=== PATIENT | male | born 1995 ===

== ENCOUNTER 2021-08-27 00:56 | Emergency (ER) | payer SELFPAY ==
[~2021-08-27 00:56] MED LIST: Amiodarone 300 MG in Dextrose 5% in Water 100 ML IV ONE; Calcium Chloride 10% 1 GM/10 ML Syringe IVPUSH ONE; EPINEPHrine 1:10,000 1 MG/10 ML Syringe IVPUSH ONE; Sodium Bicarbonate 8.4% 50 MEQ/50 ML Syringe IVPUSH ONE
== END 2021-08-27 03:27 | disposition expired ==
LOC: MW.ED 00:56
DX: I46.9 Cardiac arrest, cause unspecified (principal)
CPT/HCPCS: 31500; 36415; 36680; 92950; 96374; 96375; 99285; J0171; J0282